=== PATIENT | female | born 1950 | race Caucasian/White ===

== ENCOUNTER 2018-03-26 18:31 | Emergency (ER) | payer OTHER ==
[~2018-03-26] VITALS: Ht 170.2 cm; Wt 77.2 kg
[2018-03-26 19:18] LABS: BASOPHILS # (AUTO) 0.03 x10^3/uL (0-0.1); BASOPHILS % (AUTO) 0 % (0-1); EOSINOPHILS # (AUTO) 0.25 x10^3/uL (0-0.4); EOSINOPHILS % (AUTO) 3 % (1-7); LYMPHOCYTES # (AUTO) 3.01 x10^3/uL (1-3.4); LYMPHOCYTES % (AUTO) 34 % (22-44); MD NO; MEAN CORPUSCULAR HEMOGLOBIN 30.8 pg (27.0-34.8); MEAN CORPUSCULAR HGB CONC 34.2 g/dL (32.4-35.8); MEAN CORPUSCULAR VOLUME 90.1 fL (80-100); MEAN PLATELET VOLUME 10.4 fL (7.4-10.4); MONOCYTES # (AUTO) 0.52 x10^3/uL (0.2-0.8); MONOCYTES % (AUTO) 6 % (2-9); NEUTROPHILS # (AUTO) 5.12 x10^3/uL (1.8-6.8); NEUTROPHILS % (AUTO) 57 % (42-75); PLATELET COUNT 201 x10^3/uL (130-400); RED CELL DISTRIBUTION WIDTH 12.9 % (9.6-15.2)
[2018-03-26 19:25] LABS: ALBUMIN 4.4 g/dL (3.4-5.0); ANION GAP 3 mmol/L (5-15); CALCIUM 9.5 mg/dL (8.5-10.1); CHLORIDE 104 mmol/L (98-107)
[2018-03-26 19:29] LABS: ALANINE AMINOTRANSFERASE 38 U/L (12-78); ALKALINE PHOSPHATASE 98 U/L (45-117); BILIRUBIN,TOTAL 0.7 mg/dL (0.2-1.0); CREATININE 0.76 mg/dL (0.55-1.02); TOTAL PROTEIN 8.2 g/dL (6.4-8.2)
[2018-03-26 19:33] LABS: MICROSCOPIC AUTO
[2018-03-26 19:34] LABS: CULTURE INDICATED? YES
[2018-03-26] MEDS ORDERED: SITA1TAB PO (19:48)
[2018-03-26] MEDS ORDERED: LISI-167 PO (19:48)
[2018-03-26] MEDS ORDERED: ATOR40TA PO (19:48)
[2018-03-26 20:00] VITALS: BP 130/72
== END 2018-03-26 20:43 | disposition home or self-care (01) ==
LOC: ED 20:37
DX: S39.011A Strain of muscle, fascia and tendon of abdomen, initial encounter (principal); X50.0XXA Overexertion from strenuous movement or load, initial encounter; Y93.89 Activity, other specified; Y99.8 Other external cause status; Y92.89 Other specified places as the place of occurrence of the external cause
CPT/HCPCS: 36415; 76700; 80053; 81001; 83690; 85025; 87077; 87086; 87186; 99284

== ENCOUNTER 2018-03-29 09:53 | Emergency (ER) | payer OTHER ==
[~2018-03-29] VITALS: Ht 170.2 cm; Wt 77.7 kg
[~2018-03-29 09:53] MED LIST: ATOR40TA PO; LISI-167 PO; SITA1TAB PO
--- NOTE | 2018-03-29 10:34 | NUR ---
PT AMBULATORY WITH STEADY GAIT TO ROOM FROM [facility]
--- NOTE | 2018-03-29 10:46 | NUR ---
67 Y/O FEMALE PRESENTS TO ED WITH C/O ABD PAIN. PT STATES "I WAS HERE SATURDAY FOR A WORK UP. I WENT TO SEE MY DR. TODAY, DR. CARREON, AND SHE SAID YOU ONLY DID AN UPPER SCAN OF MY BELLY AND I NEED A LOWER ONE. SHE THINKS I HAVE A HERNIA." NO ACUTE DISTRESS NOTED. PT PLACED ON NIBP, PULSE OX. NO C/O N/V/D, SYNCOPE, SOB, CP.
--- NOTE | 2018-03-29 10:51 | NUR ---
PT AMBULATORY WITH STEADY GAIT TO BATHROOM.
[2018-03-29] MEDS ORDERED: IBUPROFEN 200 MG TABLET PO ONE (11:30)
--- NOTE | 2018-03-29 11:41 | NUR ---
ASSUMED CARE AT THIS TIME. VSS
[2018-03-29 11:47] LABS: BASOPHILS # (AUTO) 0.04 x10^3/uL (0-0.1); BASOPHILS % (AUTO) 0 % (0-1); EOSINOPHILS # (AUTO) 0.18 x10^3/uL (0-0.4); EOSINOPHILS % (AUTO) 2 % (1-7); LYMPHOCYTES # (AUTO) 2.26 x10^3/uL (1-3.4); LYMPHOCYTES % (AUTO) 21 % (22-44); MD NO; MEAN CORPUSCULAR HEMOGLOBIN 30.2 pg (27.0-34.8); MEAN CORPUSCULAR HGB CONC 33.4 g/dL (32.4-35.8); MEAN CORPUSCULAR VOLUME 90.3 fL (80-100); MEAN PLATELET VOLUME 10.3 fL (7.4-10.4); MONOCYTES # (AUTO) 0.56 x10^3/uL (0.2-0.8); MONOCYTES % (AUTO) 5 % (2-9); NEUTROPHILS # (AUTO) 7.53 x10^3/uL (1.8-6.8); NEUTROPHILS % (AUTO) 71 % (42-75); PLATELET COUNT 199 x10^3/uL (130-400); RED BLOOD COUNT 4.85 x10^6/uL (3.82-5.3); RED CELL DISTRIBUTION WIDTH 12.9 % (9.6-15.2)
[2018-03-29 12:00] LABS: ALBUMIN 4.2 g/dL (3.4-5.0); ANION GAP 7 mmol/L (5-15); CALCIUM 8.8 mg/dL (8.5-10.1); CHLORIDE 106 mmol/L (98-107)
[2018-03-29 12:03] LABS: CREATININE 0.67 mg/dL (0.55-1.02)
[2018-03-29 12:16] VITALS: BP 132/65
--- NOTE | 2018-03-29 12:16 | NUR ---
Patient/Caregiver given discharge instructions and they have confirmed that they understand the instructions. Patient ambulatory with steady gait.
== END 2018-03-29 12:35 | disposition home or self-care (01) ==
LOC: ED 12:34
DX: N30.00 Acute cystitis without hematuria (principal); E11.9 Type 2 diabetes mellitus without complications; E78.00 Pure hypercholesterolemia, unspecified
CPT/HCPCS: 36415; 74176; 80048; 82040; 85025; 93005; 99284